=== PATIENT | male | born 1990 | race Caucasian/White ===

== ENCOUNTER 2019-08-03 23:35 | Emergency (ER) | payer SELFPAY ==
[~2019-08-03] VITALS: Ht 175.3 cm; Wt 77.3 kg
[2019-08-04] MEDS ORDERED: KETOROLAC TROMETHAMINE 60 MG/2 ML VIAL IM ONE (04:00)
[2019-08-04 05:34] VITALS: BP 128/79
== END 2019-08-04 05:56 | disposition home or self-care (01) ==
LOC: EMS 23:39
DX: S83.8X1A Sprain of other specified parts of right knee, initial encounter (principal); X50.1XXA Overexertion from prolonged static or awkward postures, initial encounter; Y93.89 Activity, other specified; Y92.89 Other specified places as the place of occurrence of the external cause; Y99.8 Other external cause status
CPT/HCPCS: 29505; 73562; 73610; 96372; 99283; J1885; 29530

== ENCOUNTER 2019-09-20 11:56 | Emergency (ER) | payer MEDICAID ==
[~2019-09-20] VITALS: Ht 167.6 cm; Wt 70.5 kg
[2019-09-20] MEDS ORDERED: IBUPROFEN 800 MG TABLET PO ONE (13:30)
[2019-09-20] MEDS ORDERED: POVIDONE-IODINE 10% 15 ML SOLUTION UD TP ONE (13:30)
[2019-09-20 14:48] VITALS: BP 125/63
== END 2019-09-20 15:17 | disposition home or self-care (01) ==
LOC: EMS 11:57
DX: S61.211A Laceration without foreign body of left index finger without damage to nail, initial encounter (principal); W01.0XXA Fall on same level from slipping, tripping and stumbling without subsequent striking against object, initial encounter; Y93.89 Activity, other specified; Y92.89 Other specified places as the place of occurrence of the external cause; Y99.8 Other external cause status
CPT/HCPCS: 12001

== ENCOUNTER 2025-04-12 10:25 | Emergency (ER) | payer MEDICAID, OTHER ==
[~2025-04-12] VITALS: Ht 167.6 cm; Wt 72.7 kg
[2025-04-12] MEDS: ACETAMINOPHEN 500 MG TABLET PO ONE (12:57)
[2025-04-12] MEDS: BACITRACIN 28 GM OINTMENT TP ONE (12:57)
[2025-04-12 13:00] VITALS: BP 135/87; PULSE 74; RESP 16; TEMP 98.2; O2SAT 99
== END 2025-04-12 13:58 | disposition home or self-care (01) ==
LOC: EMS 10:29
DX: S90.822A Blister (nonthermal), left foot, initial encounter (principal); F17.210 Nicotine dependence, cigarettes, uncomplicated; Z59.00 Homelessness unspecified; Z98.890 Other specified postprocedural states; X58.XXXA Exposure to other specified factors, initial encounter; Y93.89 Activity, other specified; Y92.89 Other specified places as the place of occurrence of the external cause; Y99.9 Unspecified external cause status
CPT/HCPCS: 99283